=== PATIENT | female | born 1940 ===

== ENCOUNTER → 2024-11-30 11:44 | Outpatient (REF) | payer MEDICARE, SELFPAY ==
[2024-11-30 12:27] LABS: % Basophils 0.8 % (0-2); % Eosinophils 5.3 % (0-6); % Immature Granulocytes 0.3 % (0-0.5); % Lymphocytes 30.7 % (20.5-51.1); % Monocytes 7.7 % (1.7-9.3); % Neutrophils 55.2 % (42.2-75.2); Absolute Basophils 0.1 10^3/uL (0-0.2); Absolute Eosinophils 0.4 10^3/uL (0-0.7); Absolute Monocytes 0.5 10^3/uL (0.1-0.6); Absolute Neutrophils 3.7 10^3/uL (1.4-6.5); Hemoglobin 11.4 g/dL (12.0-16.0); Mean Corp Hgb Conc. 31.7 g/dL (33.0-37.0); Mean Corpuscular Hgb 31.8 pg (27.0-31.0); Mean Corpuscular Volume 100.3 fL (81.0-99.0); Mean Platelet Volume 10.9 fL (7.4-10.4); Nucleated Red Blood Cells % 0 %; Platelet Count 216 10^3/uL (130-400); Red Blood Cell Count 3.59 10^6/uL (4.20-5.40); Red Cell Dist. Width 13.8 % (11.5-14.5); Reticulocyte Count 2.2 % (0.4-2.8); White Blood Cell Count 6.6 10^3/uL (4.8-10.8)
[2024-11-30 12:36] LABS: ALT (SGPT) 36 U/L (0-35); AST (SGOT) 34 U/L (14-36); Albumin 3.5 g/dl (3.5-5.0); Alkaline Phosphatase 58 U/L (38-126); Amylase 70 U/L (30-110); Blood Urea Nitrogen 27 mg/dl (7-17); Calcium 9.2 mg/dl (8.4-10.2); Carbon Dioxide 32 mmol/L (22-30); Chloride 103 mmol/L (98-107); Creatine Phosphokinase 29 U/L (30-135); GGTP 33 U/L (12-43); Glucose 82 mg/dl (70-99); Iron 61 ug/dl (37-170); Lipase 163 U/L (23-300); Magnesium 1.8 mg/dl (1.6-2.3); Potassium 4.4 mmol/L (3.5-5.1); Sodium 141 mmol/L (135-145); Total Bilirubin 0.4 mg/dl (0.2-1.3); Total Protein 5.5 g/dl (6.3-8.2); Uric Acid 5.8 mg/dl (2.5-6.2); eGFR > 60.00
[2024-11-30 12:38] LABS: C-Reactive Protein < 5.00 mg/L (0.0-10.00)
[2024-11-30 12:45] LABS: Percent Saturation 19 % (20-50); Total Iron Binding Capacity 306 ug/dl (265-497)
[2024-11-30 12:55] LABS: Free T4 0.96 ng/dl (0.78-2.19)
[2024-11-30 13:09] LABS: TSH 0.29 uIU/ml (0.47-4.68)
[2024-11-30 13:12] LABS: Urine Albumin 1+ (Neg - Trace); Urine Bilirubin Negative (Negative); Urine Character Cloudy (Clear); Urine Color Yellow; Urine Glucose Negative (Negative); Urine Ketone Negative (Negative); Urine Leukocyte 1+ (Negative); Urine Nitrite Positive (Negative); Urine Occult Blood Negative (Negative); Urine Specific Gravity 1.015 (<1.030); Urine Urobilinogen Negative (Neg - 1+)
[2024-11-30 13:13] LABS: Ferritin 30.5 ng/ml (11.1-264.0)
[2024-11-30 13:14] LABS: Microalbumin, Random Urine < 0.6 mg/dl (0.6-1.7)
[2024-11-30 13:20] LABS: Erythrocyte Sed Rate 8 mm/hour (0-20)
[2024-11-30 13:45] LABS: Folate > 20.0 ng/ml (2.76-20); Vitamin B12 > 1000 pg/ml (239-931)
[2024-11-30 14:08] LABS: Glycohemoglobin (HgbA1c) 6.2 % (4.0-5.6)
[2024-11-30 14:15] LABS: Urine Amorphous Seen; Urine Urothelial Cell >30 /LPF (FEW)
[2024-11-30 14:16] LABS: Urine Bacteria Many (Negative); Urine Red Blood Cell 0-2 /HPF (0-2)
[2024-12-01 09:28] LABS: Vitamin D, 25-OH*** 47.8 ng/mL (30-80)
[2024-12-01 12:07] LABS: Rheumatoid Agglutinin Less Than 10 IU (<10 IU)
[2024-12-01 18:03] LABS: Zinc 93.9 ug/dL (60.0-120.0)
== END ==
LOC: OLAB 11:44
PROVIDERS: ATTENDING PHYSICIAN Family Medicine
DX: E11.9 Type 2 diabetes mellitus without complications (principal); E78.5 Hyperlipidemia, unspecified; R94.5 Abnormal results of liver function studies; R74.8 Abnormal levels of other serum enzymes; E03.9 Hypothyroidism, unspecified; M10.9 Gout, unspecified; E55.9 Vitamin D deficiency, unspecified; M12.9 Arthropathy, unspecified; D64.9 Anemia, unspecified; E53.8 Deficiency of other specified B group vitamins; E61.1 Iron deficiency; E83.42 Hypomagnesemia; N39.0 Urinary tract infection, site not specified
CPT/HCPCS: 80053; 81003; 81015; 82043; 82150; 82306; 82550; 82570; 82607; 82728; 82746; 82977; 83036; 83540; 83550; 83690; 83735; 84439; 84443; 84550; 84630; 85025; 85045; 85652; 86140; 86430; 87077; 87086; 87186